=== PATIENT | female | born 1955 | race Caucasian/White ===

== ENCOUNTER 2019-03-19 10:05 | Day surgery (SDC) | payer OTHER, SELFPAY ==
--- NOTE | 2019-03-19 06:57 | ENDO_ITS ---
Date of service: 03/19/19 Time of Service: 11:38 Endoscopy Report DATE OF PROCEDURE: 03/19/19 PRE-OP DIAGNOSIS: Dysphagia and screening colonoscopy POST-OP DIAGNOSIS: other (Gastritis, esophagitis, Transverse, descending and rectal polyp) PROCEDURE: 1. EGD with biopsies 2. Colonoscopy with polypectomies SURGEON: Arabella Greene ANESTHESIA: other (General/ ASA 2/ Aaron Engle, LIDYA) ESTIMATED BLOOD LOSS: 3 PATHOLOGY: other (Antral bx, GE junction bx, transverse, descending and rectal polyp) COMPLICATIONS: None DISPOSITION: same day INDICATIONS: Mrs. cruzito Erickson is a pleasant 63 year old female seen in the office for a screening colonoscopy and for dysphaia. EGD and colonoscopy were reviewed. Risks, benefits and complications have been reviewed. Complications include but are not limited to bleeding, pain, perforation, missed small lesion/polyp, sore throat, aspiration and adverse reaction to the medications. Questions were entertained and answered to their satisfaction and they wished to proceed. No guarantees were given or implied. PREP: Miralax/Dulcolax PROCEDURE START TIME: 11:38 PROCEDURE END TIME: 12:46 COLONOSCOPY RETRACTION TIME: 20 FINDINGS: 1. Moderate inflammation of the stomach and esophagus 2. 3 polyps PROCEDURE DESCRIPTION: After informed consent was obtained the patient was take to the procedure room and placed in a supine position. Monitors were applied and a time out was done. The patients name, date of , procedure type, allergies to medications and metal in their body was reviewed. A bite block was placed and the patient was sedated. Once sedated and comfortable the gastroscope was advanced through the oropharynx which was grossly normal into the esophagus. The proximal and mid- esophagus were normal. In the distal esophagus there was mild inflammation noted. The scope was advanced into the stomach and through the pylorus into the 3rd portion of the duodenum. The duodenum was noted to be normal. The scope was retracted back into the stomach and biopsies were done in the antrum to rule out H. pylori. There were no ulcers. There was moderate inflammation. The scope was retro-flexed. The cardia and fundus were noted to be normal. There was no hiatal hernia noted. The scope was retracted back into the esophagus and biopsies were done of the GE junction to rule out Clay's. The Z line was regular. The GE junction was at 35 cm. While the patient was still sedated they were placed in a left decubitous position. A rectal exam was done. External exam was normal. Internal exam revealed a normal sphincter tone and no palpable masses. The scope was then introduced and retro-flexed. No internal hemorrhoids were identified. There was a pedunculated polyp noted just above the dentate line. The scope was then advanced to the cecum with a lot of difficulty due to the patients obesity and a tortuous colon. The TI and appendiceal orifice were identified. The prep was adequate. The scope was then slowly retracted over 20 minutes back into the rectum. Polyps were removed with a hot snare in the transverse colon and rectum. Cold forceps were used to remove a small sessile polyp in the descending colon. The scope was removed and the patient was woken up and taken back to Same day surgery in stable condition. The patient tolerated the procedure well and there were no immediate complications. Follow up: in 2-3 weeks with her PCP regarding reflux. I will start the patient on Omperazole 40 mg daily. 3-5 year follow up for colonoscopy depending on final pathology results.
--- NOTE | 2019-03-19 06:57 | W.PM.DSUDISC ---
Discharge Plan Disposition Patient Disposition: HOME Condition: Good Discharge Details Reason For Visit: Dysphagia and colon Cancer screening Attending Provider: Arabella Greene Primary Care Provider: Angeles Tony Home Meds and New Rx's Prescriptions: New omeprazole 40 mg capsule,delayed release(DR/EC) 40 mg PO DAILY Qty: 30 RF: 5 Continued zinc acetate 25 mg (zinc) capsule 50 mg PO DAILY RF: 0 Magnesium Malate 2 tab PO HS RF: 0 cholecalciferol (vit D3)(bulk) 1 ML liquid 1 ml Miscellaneous DAILY Qty: 1 RF: 0 turmeric root extract 500 MG capsule 500 mg PO DAILY Qty: 1 RF: 0 lisinopril 10 MG tablet 10 mg PO DAILY Qty: 90 RF: 4 Collagen 1 tsp PO DAILY RF: 0 red yeast rice 600 mg Capsule 600 mg PO DAILY RF: 0 Discontinued bisacodyl [Dulcolax (bisacodyl)] 5 mg tablet,delayed release (DR/EC) 5 mg PO ONCE Qty: 4 RF: 0 polyethylene glycol 3350 17 gram/dose powder 255 g PO ONCE Qty: 255 RF: 0 Discharge Instructions Instructions: Colonoscopy (DC), Upper Endoscopy (DC), Colorectal Polyps (DC), Diet for Stomach Ulcers and Gastritis (GEN), Gastritis (DC), Esophagitis (DC) Additional Instructions: Findings: Inflammation of the stomach and esophagus Polyps Follow up: 2-3 weeks with your PCP regarding your stomach 3-5 years for next colonoscopy Medication: Please start Prilosec 40 mg daily Please call if you develop: fevers >101.5 Nausea or Vomiting Abdominal pain that is not transient DAY SURGERY UNIT POST COLONOSCOPY INSTRUCTIONS 1. Because there will be medication in your system for the next 24 hours, you may feel a little sleepy. Your coordination will be affected. Therefore: a. Do not drive or operate dangerous equipment for 24 hours. b. Do not drink alcohol beverages for 24 hours (not even beer). c. Plan to go home and rest for the day. 2. Generally there are no restrictions on your activity after a day or so has gone by, but you may feel a bit fatigued for a few days. 3 After you arrive home you may have a light meal and return to a normal diet as you can tolerate it without feeling sick to your stomach. 4. After surgery, you may feel pain or discomfort. This should be only transient, but if it persists please contact your doctor. 5. If there are any questions regarding the findings of your procedure, please feel free to contact your doctor. 6. If you are unable to contact your doctor with a problem, contact the hospital at [phone]. 7. Continue all your regular medications unless directed otherwise. I understand the above instructions and have no questions. Signature of Patient or Responsible Adult Escort Date/Time Name of Responsible Adult Escort Signature of Nurse Date/Time Activity:: Activity as Tolerated Diet:: low acid Discharge Orders Discharge Orders: Discharge Order (Routine); Ordered 03/19/19 Ordered By: Arabella Greene DS: Diagnosis Discharge Diagnosis (1) S/P colonoscopy: Status: Acute (2) H/O esophagogastroduodenoscopy: Status: Chronic (3) Esophagitis: Status: Acute (4) Gastritis: Status: Acute (5) Colorectal polyps: Status: Acute
[2019-03-19 10:32] VITALS: BP 150/83; PULSE 78; RESP 18; TEMP 36.3; O2SAT 95
[2019-03-19] MEDS: Lactated Ringers 1,000 ML 80 ML IV (10:48)
--- NOTE | 2019-03-19 11:42 | BOWEL_PTH ---
PATIENT: Tangela Erickson LOC: [facility] U#:[id number] AGE/SX: 63/F ROOM: RE03/19/[address]: Arabella Greene MD : 1955 BED: DIS: 03/19/2019 SPEC #: [id number] RECD: 03/19/19 13:03 STATUS: MICHELE RE #: [id number] ZOYA: 03/19/19 11:[address]: Arabella Greene DEPT: Surgical Specimen RECD BY: Claritza Saunders ENTERED: 03/19/19 13:04 SP TYPE: Bowel OTHR DR: Angeles Tony APRN Tissues: 1 - BIOPSY BOWEL 2 - BIOPSY BOWEL 3 - BIOPSY BOWEL 4 - BIOPSY BOWEL 5 - BIOPSY BOWEL Procedures: GROSS AND MICRO LEVEL 4 Comments: [id number]
[2019-03-19 13:23] VITALS: BP 140/80; PULSE 73; RESP 18; TEMP 35.4; O2SAT 93
== END 2019-03-19 13:39 | disposition home or self-care (01) ==
LOC: SUR 10:06
PROVIDERS: Visit Provider Surgery
PROC: (CPT 45385; principal; 2019-03-19 11:00)
DX: Z12.11 Encounter for screening for malignant neoplasm of colon (principal); D12.3 Benign neoplasm of transverse colon; D12.8 Benign neoplasm of rectum; K63.5 Polyp of colon; K63.89 Other specified diseases of intestine; R13.10 Dysphagia, unspecified; K22.10 Ulcer of esophagus without bleeding; K21.0 Gastro-esophageal reflux disease with esophagitis; K31.89 Other diseases of stomach and duodenum; I10 Essential (primary) hypertension
CPT/HCPCS: 45385; 45380; 43239; 88305

== ENCOUNTER 2019-04-16 15:46 | Outpatient (REF) | payer OTHER, SELFPAY ==
--- NOTE | 2019-04-16 14:00 | PAPFT_PTH ---
PATIENT: Tangela Erickson LOC: [facility] U#:[id number] AGE/SX: 63/F ROOM: RE04/16/[address]: Angeles Tony APRN : 1955 BED: DIS: 04/16/2019 SPEC #: [id number] RECD: 04/17/19 12:59 STATUS: MICHELE RERogelio #: [id number] ZOYA: 04/16/19 14:[address]: Angeles Tony DEPT: [facility] Cytology RECD BY: Karina Olivares Tissues: 1 - CX/ENDOCX FOR PAP SMEARS Procedures: PAP THIN PREP/[facility] Screening HPV DNA PROBE Comments: [id number]
== END 2019-04-16 16:06 ==
LOC: LBN 15:46
DX: Z12.4 Encounter for screening for malignant neoplasm of cervix (principal); Z11.51 Encounter for screening for human papillomavirus (HPV)
CPT/HCPCS: 88142; 87624

== ENCOUNTER 2019-04-27 02:02 | Outpatient (CLI) | payer OTHER, SELFPAY ==
[2019-04-27 11:40] LABS: ALT 32 U/L (12-78); AST 11 U/L (15-37); Albumin 3.9 g/dL (3.4-5.0); Alkaline Phosphatase 96 U/L (46-116); Anion Gap 12.6 mmol/L (3-11); BUN 11 mg/dL (7-18); Bilirubin, Total 0.5 mg/dL (0.2-1.0); CO2 27.4 mmol/L (21.0-32.0); CREATININE 0.69 mg/dL (0.55-1.02); Calcium 9.2 mg/dL (8.5-10.1); Calculated LDL 145 mg/dL; Chloride 106 mmol/L (98-107); Cholesterol 216 mg/dL (50-200); Glucose 93 mg/dL (70-100); HDL Cholesterol 41 mg/dL (40-60); Potassium 4.6 mmol/L (3.5-5.1); Sodium 146 mmol/L (136-145); Total Protein 7.1 g/dL (6.4-8.2); Triglyceride 152 mg/dL (30-150)
== END 2019-04-27 02:22 ==
DX: E03.9 Hypothyroidism, unspecified (principal); E78.5 Hyperlipidemia, unspecified; I10 Essential (primary) hypertension; K20.9 Esophagitis, unspecified; L57.0 Actinic keratosis; M25.572 Pain in left ankle and joints of left foot
CPT/HCPCS: 36415; 80053; 80061; 83721

== ENCOUNTER 2022-09-09 05:03 | Outpatient (CLI) | payer MEDICARE, SELFPAY ==
[2022-09-09 13:08] LABS: ALT 27 U/L (14-59); AST 14 U/L (15-37); Albumin 3.9 g/dL (3.4-5.0); Alkaline Phosphatase 76 U/L (46-116); Anion Gap 7.6 mmol/L (3-11); BUN 16 mg/dL (7-18); Bilirubin, Total 0.7 mg/dL (0.2-1.0); CO2 29.4 mmol/L (21.0-32.0); CREATININE 0.8 mg/dL (0.55-1.02); Calcium 9.5 mg/dL (8.5-10.1); Calculated LDL 202 mg/dL (<100); Chloride 102 mmol/L (98-107); Cholesterol 279 mg/dL (<200); Estimated GFR 80.71 (mL/min/1.73m2); Glucose 91 mg/dL (74-106); HDL Cholesterol 50 mg/dL (40-60); Potassium 3.8 mmol/L (3.5-5.1); Sodium 139 mmol/L (136-145); Total Protein 7.5 g/dL (6.4-8.2); Triglyceride 136 mg/dL (<150)
[2022-09-10 09:11] LABS: HBs Antibody, Quant <3.1 mIU/mL (See Note); Hepatitis B Surface Ab Negative (See Note)
[2022-09-10 09:49] LABS: Hepatitis C Ab w Rflx HCV PCR Negative (Negative)
== END 2022-09-09 05:04 | disposition home or self-care (01) ==
LOC: LOS 05:03
PROVIDERS: PCP Nurse Practitioner Family; Visit Provider Nurse Practitioner Family
DX: E78.5 Hyperlipidemia, unspecified (principal); Z11.59 Encounter for screening for other viral diseases; I10 Essential (primary) hypertension; K63.5 Polyp of colon; R63.8 Other symptoms and signs concerning food and fluid intake
CPT/HCPCS: 36415; 80053; 80061; 86706; 86803

== ENCOUNTER → 2024-02-09 04:44 | Outpatient (CLI) | payer MEDICARE, SELFPAY ==
--- NOTE | 2024-02-09 08:30 | DI.DEXA_ITS ---
Exam(s) XR DEXA BONE DENSITY W/WO NEGRO EXAM: XR DEXA BONE DENSITY W/WO NEGRO CLINICAL HISTORY: screening for osteoporosis in postmenopausal woman, z78.0 TECHNIQUE: COMPARISON: No exams were available for comparison FINDINGS: Lateral Spine Image: Unremarkable. No compression deformities identified. Left hip: Total T-Score: 2.8 Total Z-Score: 4.3 T- and Z-scores: Within normal limits. Lumbar Spine: Total T-Score: 1.8 Total Z-Score: 3.9 T- and Z-scores: Within normal limits. IMPRESSION: No evidence of osteoporosis.
== END ==
PROVIDERS: PCP Nurse Practitioner Family; Visit Provider Nurse Practitioner Family
DX: Z13.820 Encounter for screening for osteoporosis (principal); Z78.0 Asymptomatic menopausal state
CPT/HCPCS: 77080

== ENCOUNTER 2024-08-14 02:26 | Outpatient (CLI) | payer MEDICARE, SELFPAY ==
[2024-08-14 12:03] LABS: ALT 27 U/L (14-59); AST 11 U/L (15-37); Albumin 3.8 g/dL (3.4-5.0); Alkaline Phosphatase 90 U/L (46-116); Anion Gap 8.4 mmol/L (3-11); BUN 14 mg/dL (7-18); Bilirubin, Total 0.58 mg/dL (0.2-1.0); CO2 29.6 mmol/L (21.0-32.0); CREATININE 0.8 mg/dL (0.55-1.02); Calcium 9.7 mg/dL (8.5-10.1); Calculated LDL 192 mg/dL (<100); Chloride 105 mmol/L (98-107); Cholesterol 275 mg/dL (<200); Estimated GFR 79.71 (mL/min/1.73m2); Glucose 96 mg/dL (74-106); HDL Cholesterol 45 mg/dL (40-60); Magnesium 2.4 mg/dL (1.8-2.4); Potassium 4.1 mmol/L (3.5-5.1); Sodium 143 mmol/L (136-145); Total Protein 7.9 g/dL (6.4-8.2); Triglyceride 191 mg/dL (<150)
== END 2024-08-14 02:27 | disposition home or self-care (01) ==
LOC: LBO 02:26
PROVIDERS: PCP Nurse Practitioner Family; Visit Provider Nurse Practitioner Family
DX: E78.5 Hyperlipidemia, unspecified (principal); Z51.81 Encounter for therapeutic drug level monitoring
CPT/HCPCS: 36415; 80053; 80061; 83735